=== PATIENT | female | born 1990 | race Hispanic/Latino ===

== ENCOUNTER 2024-05-06 14:47 | Observation (INO) | payer MEDICAID ==
[~2024-05-06] VITALS: Ht 162.6 cm; Wt 83.5 kg
[2024-05-08 12:52] LABS: APPEARANCE,URINE CLEAR (CLEAR); BILIRUBIN,URINE NEGATIVE (NEGATIVE); COLOR,URINE LIGHT-YELLOW (YELLOW); GLUCOSE, URINE (UA) NEGATIVE (NEGATIVE); KETONES,URINE NEGATIVE (NEGATIVE); LEUKOCYTE ESTERASE ,URINE NEGATIVE Leu/uL (NEGATIVE); NITRATE,URINE NEGATIVE (NEGATIVE); PROTEIN,URINE NEGATIVE (NEGATIVE); UROBILINOGEN,URINE 0.2 mg/dL (0.2-1.0)
[2024-05-08 12:53] LABS: ADD UA MICROSCOPIC YES
[2024-05-08 12:54] LABS: BACTERIA,URINE RARE /HPF (None Seen); SQUAMOUS EPITHELIAL CELL,UR RARE /HPF (0-2)
== END 2024-05-08 13:30 | disposition home or self-care (01) ==
LOC: LDH 05-08 11:50
PROVIDERS: ADMIT Obstetrics & Gynecology; ATTEND Obstetrics & Gynecology
DX: O42.92 Full-term premature rupture of membranes, unspecified as to length of time between rupture and onset of labor (principal); Z3A.40 40 weeks gestation of pregnancy
CPT/HCPCS: 81001; 82120; G0379; G0378

== ENCOUNTER 2024-05-10 15:14 | Inpatient (IN) | payer MEDICAID ==
[~2024-05-10] VITALS: Ht 162.6 cm; Wt 84.8 kg
[2024-05-10] MEDS: AMPICILLIN 2GM+NS 100ML 100 ML IV SCH (15:59)
[2024-05-10] MEDS ORDERED: AMPICILLIN 1GM+NS 50ML 50 ML IV SCH (16:00)
[2024-05-10] MEDS ORDERED: OXYTOCIN-LR 30 UNITS/500ML 500 ML IV SCH (16:00)
[2024-05-10] MEDS: LACTATED RINGERS 1000ML 1,000 ML IV PRN (16:01)
[2024-05-10 16:05] LABS: HEMATOCRIT 36.5 % (36-48); MEAN CORPUSCULAR HEMOGLOBIN 30.9 pg (27.0-33.0); RED BLOOD CELL COUNT(AUTO) 4.01 MIL/uL (4.00-5.50); RED CELL DISTRIBUTION WIDTH 13.2 % (11.0-15.5); WHITE BLOOD COUNT (AUTO) 12.7 K/uL (4.8-10.8)
[2024-05-10 16:16] LABS: APPEARANCE,URINE CLEAR (CLEAR); BILIRUBIN,URINE NEGATIVE (NEGATIVE); COLOR,URINE COLORLESS (YELLOW); GLUCOSE, URINE (UA) NEGATIVE (NEGATIVE); KETONES,URINE NEGATIVE (NEGATIVE); LEUKOCYTE ESTERASE ,URINE NEGATIVE Leu/uL (NEGATIVE); NITRATE,URINE NEGATIVE (NEGATIVE); OCCULT BLOOD,URINE NEGATIVE (NEGATIVE); PH,URINE 6.5 (5.0-8.0); PROTEIN,URINE NEGATIVE (NEGATIVE); UROBILINOGEN,URINE 0.2 mg/dL (0.2-1.0)
[2024-05-10 16:18] LABS: ADD UA MICROSCOPIC NO
[2024-05-10 16:22] LABS: AMPHET/METH SCREEN,URINE NEGATIVE (NEGATIVE); BARBITURATE SCREEN, URINE NEGATIVE (NEGATIVE); BENZODIAZEPINES SCREEN,URINE NEGATIVE (NEGATIVE); CANNABINOID SCREEN,URINE NEGATIVE (NEGATIVE); COCAINE SCREEN,URINE NEGATIVE (NEGATIVE); OPIATE SCREEN,URINE NEGATIVE (NEGATIVE); PHENCYCLIDINE SCREEN,URINE NEGATIVE (NEGATIVE)
[2024-05-10] MEDS: AMPICILLIN 1GM+NS 50ML 50 ML IV SCH (20:08)
[2024-05-11] MEDS: OXYTOCIN-LR 30 UNITS/500ML 500 ML IV SCH (04:02)
[2024-05-11] MEDS: PROMETHAZINE HCL 25 MG/ML 1ML AMPULE IM PRN (07:51)
[2024-05-11] MEDS: MEPERIDINE-PF 50 MG/ML SYG IVP PRN (07:52)
[2024-05-11] MEDS ORDERED: NALOXONE HCL 0.4 MG/1 ML ML IV PRN (11:00)
[2024-05-11] MEDS ORDERED: EPHEDRINE SULFATE 50 MG/ML AMPULE IVP PRN (11:00)
[2024-05-11] MEDS ORDERED: LACTATED RINGERS 500 ML 500 ML IV PRN (11:00)
[2024-05-11] MEDS: ROPIVACAINE 0.2% 2MG/ML 100ML VIAL EP SCH (11:27)
[2024-05-11] MEDS ORDERED: LIDOCAINE HCL-MPF 2% 10ML AMP IJ ONE (12:11)
[2024-05-11] MEDS ORDERED: FENTANYL CITRATE PF 50 MCG/1 ML 2ML VIAL ONE ×2 (13:22→15:17)
[2024-05-11] MEDS ORDERED: MEASLES/MUMPS/RUBELLA VACCINE, LIVE 0.5 ML/VIAL SQ PRN (19:30)
[2024-05-11] MEDS ORDERED: ACETAMINOPHEN 325 MG TAB PO PRN ×2 (19:30→22:00)
[2024-05-11] MEDS ORDERED: ACETAMINOPHEN WITH CODEINE 1 TAB TAB PO PRN ×2 (19:30→22:00)
[2024-05-11] MEDS ORDERED: LANOLIN 30GM OINTMENT TP PRN ×2 (19:30→22:00)
[2024-05-11 21:05] VITALS: BP 116/77; PULSE 76; RESP 20
[2024-05-11] MEDS: IBUPROFEN 600 MG TABLET PO PRN (21:49)
[2024-05-11] MEDS: BENZOCAINE/LANOLIN/ALOE VERA 60 ML AEROSOL TP PRN (21:51)
[2024-05-11] MEDS: WITCH HAZEL 1 PAD TP PRN (21:52)
[2024-05-11] MEDS ORDERED: IBUPROFEN 600 MG TABLET PO PRN (22:00)
[2024-05-11] MEDS ORDERED: BENZOCAINE/LANOLIN/ALOE VERA 60 ML AEROSOL TP PRN (22:00)
[2024-05-11] MEDS ORDERED: WITCH HAZEL 1 PAD TP PRN (22:00)
[2024-05-11 23:18] VITALS: BP 135/82; PULSE 98; RESP 20
[2024-05-12 04:13] VITALS: BP 120/78; PULSE 93; RESP 20
[2024-05-12 04:17] VITALS: BP 120/78; PULSE 93; RESP 20
[2024-05-12 07:13] LABS: HEMATOCRIT 33.7 % (36-48); MEAN CORPUSCULAR HEMOGLOBIN 30.8 pg (27.0-33.0); MEAN CORPUSCULAR HGB CONC 34.7 g/dL (32.0-36.0); MEAN CORPUSCULAR VOLUME 88.7 fL (79-99); RED BLOOD CELL COUNT(AUTO) 3.8 MIL/uL (4.00-5.50); RED CELL DISTRIBUTION WIDTH 13.2 % (11.0-15.5); WHITE BLOOD COUNT (AUTO) 18.4 K/uL (4.8-10.8)
[2024-05-12 07:49] VITALS: BP 129/78; PULSE 89
[2024-05-12] MEDS: DOCUSATE SODIUM 100 MG CAP PO SCH ×2 (08:59→09:57)
[2024-05-12] MEDS ORDERED: IBUP-2070 PO (10:27)
[2024-05-12] MEDS ORDERED: PREN1CAP PO (10:28)
[2024-05-12 11:55] VITALS: BP 126/78; PULSE 94; RESP 18
[2024-05-12 12:30] VITALS: BP 137/85; PULSE 105
[2024-05-12 16:00] VITALS: BP 132/75; PULSE 86; RESP 18
[2024-05-12] MEDS: DIPH,PERTUSS(ACELL),TET VAC/PF 0.5 ML VIAL IM PRN (18:02)
== END 2024-05-12 18:32 | disposition home or self-care (01) | DRG 560 ==
LOC: LDH 15:20 → WSH 05-11 21:05
PROVIDERS: ADMIT Obstetrics & Gynecology; ATTEND Obstetrics & Gynecology
PROC: 10E0XZZ Delivery of Products of Conception, External Approach (ICD-10-PCS; principal; 2024-05-11)
PROC: 0KQM0ZZ Repair Perineum Muscle, Open Approach (ICD-10-PCS; 2024-05-11)
PROC: 3E0R3BZ Introduction of Anesthetic Agent into Spinal Canal, Percutaneous Approach (ICD-10-PCS; 2024-05-11)
PROC: 00HU33Z Insertion of Infusion Device into Spinal Canal, Percutaneous Approach (ICD-10-PCS; 2024-05-11)
PROC: 3E0234Z Introduction of Serum, Toxoid and Vaccine into Muscle, Percutaneous Approach (ICD-10-PCS; 2024-05-12)
DX: O48.0 Post-term pregnancy (principal); Z37.0 Single live birth; O70.1 Second degree perineal laceration during delivery; Z3A.40 40 weeks gestation of pregnancy; Z23 Encounter for immunization
CPT/HCPCS: 36415; 76805; 80305; 81003; 82120; 85027; 86592; 86850; 86900; 86901; 87340; 90715; A4314; A4351; G0378; J0290; J2175; J2550; J2795; J3010; J3490; J7120